=== PATIENT | male | born 1945 | race Caucasian/White ===

== ENCOUNTER → 2020-05-14 10:28 | Outpatient (POV) | payer MEDICARE, SELFPAY | PROVIDERS: Visit Provider Dermatology | DX: Z00.00 Encounter for general adult medical examination without abnormal findings (principal) ==

== ENCOUNTER → 2020-12-04 09:30 | Outpatient (CLI) | payer MEDICARE, SELFPAY ==
[2020-12-04 11:05] LABS: Coronavirus 19 IgG Antibody Positive (Negative); Coronavirus 19 IgM Antibody Negative (Negative)
== END ==
PROVIDERS: Visit Provider Urology
DX: N40.1 Benign prostatic hyperplasia with lower urinary tract symptoms (principal); R97.20 Elevated prostate specific antigen [PSA]; Z01.812 Encounter for preprocedural laboratory examination; Z20.822 Contact with and (suspected) exposure to COVID-19
CPT/HCPCS: 36415; 86328

== ENCOUNTER 2020-12-06 09:17 | Day surgery (SDC) | payer MEDICARE, SELFPAY ==
[2020-12-03 15:46] VITALS: BMI 26.4
[2020-12-06 09:34] VITALS: BP 191/87; PULSE 58; RESP 16; TEMP 36.3; O2SAT 99
[2020-12-06 10:04] VITALS: BP 158/76; PULSE 59; RESP 18; TEMP 36.5; O2SAT 99
--- NOTE | 2020-12-06 12:46 | HMH.OPNOTE ---
Date of procedure: 12/06/20 Pre-op Diagnosis:: BPH with lower urinary tract symptoms Post-op Diagnosis:: Same Procedure performed:: Cystourethroscopy Surgeon:: Boone Barrera MD Anesthesia: local Estimated blood loss (mL): 0 Clinical Note:: Patient is a 75-year-old white male with lower urinary tract symptoms. His prostate is enlarged on examination and he presents today for urologic evaluation. Operative findings:: Patient with trilobar hyperplasia and a large median lobe extending into the bladder. There was no evidence of trabeculation or cellule formation. Operative note:: Patient taken to the cystoscopy suite after informed consent was obtained. On the stretcher he was prepped and draped in the standard surgical fashion and 2% lidocaine placed into the urethra and the urethra clamped for 5 minutes. The flexible cystoscope introduced to the meatus passed to the prostatic urethra which showed trilobar hyperplasia. The bladder was entered and examined in a systematic fashion. Surprisingly there was no trabeculation or cellule formation. No mucosal abnormalities were noted. The ureteral orifices were somewhat obscured by a large median lobe. The scope was retroflexed showing a large median lobe extending into the bladder. There was clear efflux of urine from the ureteral orifices. Scope removed patient tolerated procedure well. We discussed the findings and we discussed that due to his median lobe he is not a good UroLift candidate and we discussed transurethral resection of prostate. He would like to proceed we will set this up at his earliest convenience. Condition: stable Disposition: same day Specimens:: None Complications:: None
== END 2020-12-06 10:14 | disposition home or self-care (01) ==
LOC: OUTP 09:19
PROVIDERS: PCP Internal Medicine; Visit Provider Urology
PROC: (CPT 52000; principal; 2020-12-06 10:30)
DX: N40.1 Benign prostatic hyperplasia with lower urinary tract symptoms (principal); R35.1 Nocturia; R39.16 Straining to void; Z82.49 Family history of ischemic heart disease and other diseases of the circulatory system; Z82.3 Family history of stroke; Z80.9 Family history of malignant neoplasm, unspecified; R97.20 Elevated prostate specific antigen [PSA]; N52.9 Male erectile dysfunction, unspecified; Z79.899 Other long term (current) drug therapy
CPT/HCPCS: 52000

== ENCOUNTER → 2020-12-20 09:18 | Outpatient (CLI) | payer MEDICARE, SELFPAY ==
[2020-12-20 09:35] LABS: Basophils % 0.3 % (0.1-2.0); Eosinophils # 0.1 K/mm3 (0.0-0.4); Eosinophils % 1.9 % (0.1-12.0); Hematocrit 39.5 % (42.0-52.0); Lymphocytes # 1.1 K/mm3 (0.7-4.5); Lymphocytes % 19.4 % (10-50); Mean Corpuscular HGB Conc 35.4 g/dL (31.8-35.4); Mean Corpuscular Hemoglobin 29.1 pg (27.0-31.2); Mean Platelet Volume 8.1 fl (7.4-10.4); Monocytes # 0.3 K/mm3 (0.1-1.0); Monocytes % 4.7 % (1.7-9.3); Neutrophils # 4.2 K/mm3 (1.8-7.8); Neutrophils % 73.8 % (37.0-80.0); Platelet Count 252 K/mm3 (142-424); Red Blood Count 4.81 M/mm3 (4.60-6.20); Red Cell Distribution Width 15.7 % (11.5-17.5); White Blood Count 5.7 K/mm3 (4.8-10.8)
[2020-12-20 10:14] LABS: Anion Gap 13.1 mEq/L (5-15); Blood Urea Nitrogen 17 mg/dl (9-20); Calcium 9.9 mg/dl (8.4-10.2); Carbon Dioxide 28 mmol/L (22.0-30.0); Chloride 103 mmol/L (98-107); Estimated Glomerular Filt Rate 66 ml/min (>60); GFR (African American) 79 ML/MIN (>60); Glucose 240 mg/dl (74-100); Potassium 3.1 mmoL/L (3.5-5.1); Sodium 141 mmol/L (136-145)
[2020-12-20 10:26] LABS: Coronavirus 19 IgG Antibody Positive (Negative); Coronavirus 19 IgM Antibody Negative (Negative)
== END ==
PROVIDERS: Visit Provider Urology
DX: R97.20 Elevated prostate specific antigen [PSA] (principal); Z01.812 Encounter for preprocedural laboratory examination; Z20.822 Contact with and (suspected) exposure to COVID-19
CPT/HCPCS: 36415; 80048; 85025; 86328

== ENCOUNTER 2020-12-23 10:02 | Observation (INO) | payer MEDICARE, SELFPAY ==
[2020-12-23] VITALS (21 sets, daily range): BP systolic 133–206; BP diastolic 63–95; PULSE 54–67; RESP 16–20; TEMP 36.4–43; O2SAT 92–98; BMI 26.9; BMI 17.9
--- NOTE | 2020-12-23 13:51 | P.PN_ITS ---
[facility] Anesthesia Checklist - Patient Identification Patient Identification: Arm Band - Structural Data Admitted From: Home Planned Operative Procedure/s: TURP Consent for Planned Operative Procedure(s) Verified: Yes Verified Documents: Surgical Consent, History and Physical - NPO Status Verified Time NPO: 00:00 - Additional verifications Anesthesia Reactions: No Hx Blood Transfusions: No Blood Transfusion Reaction: No - Airway Assessment C-Spine Mobility Assessed: Yes (mp2) TMJ Mobility Assessed: Yes Dentition: Good Dentition - Neurological Assessment Level of Consciousness: Awake, Alert - Anesthesia Plan Anesthesia Risk discussed: Yes Anesthesia Plan: Verified ASA Class: II Anesthesia Type: General [facility] History I have reviewed the patient's past medical history: Yes Medical History: Reports:: Cancer (PROSTATE), Hypertension, Kidney Stones Denies:: Diabetes Mellitus Type 1, Diabetes Mellitus Type 2, Internal Pacemaker, MRSA, Seizures *Have you ever received a pneumonia vaccine?: No *Have you received a flu vaccine this season?: No Other Medical History: Denies: Blood Transfusion Reaction Anesthesia experience/problems:: nac Other Surgeries: Yes: Colonoscopy. No: Pacemaker Amputation: No Fractures: No - *Social History Last grade of school completed: Some college Smoking Status: Never smoker Alcohol Intake: never Substance Use Type: denies use *Occupational Status:: employed Housing: house Household Members: spouse *Travel in the last 8 weeks: None Family Hx:: Cancer, Heart Attack, Hypertension, Stroke
--- NOTE | 2020-12-23 13:52 | HMH.ANESI ---
[facility] Anesthesia Record Part I Intake, IV Amount: 800 Estimated blood loss (mL): 0 Urine output (mL): 0 Blood Pressure: 133/95 SaO2: 92 Pulse Rate: 62 Respiratory Rate: 16 Temperature: 98.7 F Patient is:: Drowsy, Stable Stable to PACU at:: 13:45
--- NOTE | 2020-12-23 14:15 | PC.NURSE ---
Spoke to lab, approx 20 more minutes until COVID swab results
--- NOTE | 2020-12-23 14:48 | HMH.PHAVTE ---
[facility] Pharmacy VTE Monitoring - Patient Demographics Admission date: 12/23/20 Report Date: 12/23/20 Time: 14:48 Allergies/Adverse Reactions: Patient Allergies Penicillins Allergy (Verified 12/23/20 09:43) Height: 1.8 m Weight: 87.543 kg - VTE Risk Clinical Trial Participant: No - Prophylaxis VTE Prophylaxis Ordered?: Yes Types of VTE Prophylaxis: IPCS Knee High (POST OP)
--- NOTE | 2020-12-23 14:58 | HMH.ANESII ---
[facility] Anesthesia Record Part II Discharge Time: 14:15 Destination: Medical Surgical Department PACU nurse assessment reviewed?: Yes Patient Condition:: Good Anesthesia Complications:: None Swallowing reflex intact?: Yes Cyanosis?: No Blood Pressure: 138/68 Pulse Rate: 57 Temperature: 98.2 F Mental Status: Alert & Oriented Pain level:: 0 Nausea and/or vomitting:: None Intake, IV Amount: 0
--- NOTE | 2020-12-23 15:24 | HMH.PHAINT ---
clarified home medication list using list from Dr Dinh' office
--- NOTE | 2020-12-23 15:38 | P.OP_ITS ---
Date of procedure: 12/23/20 Pre-op Diagnosis:: BPH with obstruction Post-op Diagnosis:: BPH with obstruction Procedure performed:: Transurethral resection of prostate Surgeon:: Boone Barrera MD SENIOR ARCHITECT/DESIGN MANAGER:: Bhupendra Orozco Anesthesia: GETA Estimated blood loss (mL): 10 Clinical Note:: 75-year-old white male with lower urinary tract symptoms noted to have a BPH on cystoscopy. He presents for urologic management. Operative findings:: Patient with trilobar hyperplasia and moderate sized median lobe. TURP was performed without difficulty. Operative note:: Patient taken to the operating room after informed consent was obtained. Was placed on the operating table in the supine position and general anesthesia administered. Preoperative antibiotics and sequential compression devices placed. He was then placed into the dorsal lithotomy position prepped draped in a standard surgical fashion. 22 Rober passed into the urethra and up to the prostate which again showed trilobar hyperplasia. The bladder was entered and examined in a systematic fashion. No significant cellule or diverticular fo rmation noted. Minimal trabeculation was noted. The ureteral orifices were close to the median lobe. The cystoscope then removed and our 28 Sinhala resectoscope sheath passed into the bladder without difficulty and the resectoscope passed through the sheath and resection began at the bladder neck resecting it in a circumferential fashion. We then resected the prostate at the 6 o'clock position back to the verumontanum. Right-sided prostate was then resected in a clockwise fashion back to the be removed. The left side the prostate was resected as well in a counterclockwise fashion. Some anterior tissue was resected as well. The apical tissue near the very was resected as stage III of the procedure. All the prostate chips were then evacuated and hemostasis achieved. There was a good TUR defect noted at the end of the case. Scope removed and a 22 Sinhala three-way catheter passed into the bladder without difficulty and 25 cc placed into the balloon. The three-way catheter was passed to continuous bladder irrigation. The urine was clear. Patient transported to recovery in stable condition. Condition: stable Disposition: PACU Specimens:: Prostate chips Complications:: None
--- NOTE | 2020-12-23 16:11 | PC.NURSE ---
Per MD Barrera, continue CBI running w/ a goal of urine being light pink in color. Also, CBI can end at 0700 on 12/24/20. PRN MAR order placed for sterile water irrigation fluids per MD Barrera
[2020-12-24] VITALS: BP 151/74; PULSE 58; RESP 18; TEMP 36.6; O2SAT 96
[2020-12-24 04:00] VITALS: BP 153/65; PULSE 59; RESP 17; TEMP 36.6; O2SAT 98
--- NOTE | 2020-12-24 04:03 | PC.NURSE ---
no change from previous assesssment, pt remains alert and oriented and able to make needs known, CBI continues with light pink output in may, pt c/o groin pain 3/10 on pain scale that pt describes as dull ache, no distress noted, call light within reach will continue to monitor
[2020-12-24 05:31] VITALS: BMI 17.9
[2020-12-24 07:21] LABS: Basophils % 0.1 % (0.1-2.0); Eosinophils % 0.1 % (0.1-12.0); Hematocrit 37.7 % (42.0-52.0); Hemoglobin 13.1 g/dL (14.1-18.0); Lymphocytes # 1.2 K/mm3 (0.7-4.5); Lymphocytes % 10.8 % (10-50); Mean Corpuscular HGB Conc 34.8 g/dL (31.8-35.4); Mean Corpuscular Hemoglobin 29.2 pg (27.0-31.2); Mean Corpuscular Volume 84.1 fl (80-94); Mean Platelet Volume 7.6 fl (7.4-10.4); Monocytes # 0.5 K/mm3 (0.1-1.0); Monocytes % 4.8 % (1.7-9.3); Neutrophils # 9.2 K/mm3 (1.8-7.8); Neutrophils % 84.3 % (37.0-80.0); Platelet Count 249 K/mm3 (142-424); Red Blood Count 4.48 M/mm3 (4.60-6.20); Red Cell Distribution Width 15.6 % (11.5-17.5); White Blood Count 10.9 K/mm3 (4.8-10.8)
[2020-12-24 07:29] LABS: Anion Gap 11.6 mEq/L (5-15); Blood Urea Nitrogen 18 mg/dl (9-20); Calcium 8.7 mg/dl (8.4-10.2); Carbon Dioxide 25 mmol/L (22.0-30.0); Chloride 107 mmol/L (98-107); Creatinine Clearance Estimated 59 mL/min (50-200); Estimated Glomerular Filt Rate 73 ml/min (>60); GFR (African American) 89 ML/MIN (>60); Glucose 205 mg/dl (74-100); Potassium 3.6 mmoL/L (3.5-5.1); Sodium 140 mmol/L (136-145)
[2020-12-24 08:00] VITALS: BP 171/74; PULSE 62; RESP 18; TEMP 36.8; O2SAT 97
--- NOTE | 2020-12-24 09:38 | P.PN_ITS ---
Internal Medicine - PN: Subj *Date: 12/24/20 *Time: 09:38 Interval history: Patient denies any problems overnight. Galvez catheter has been running well with moderate CBI. CBI was turned off 2 hours ago on the urine is blood-tinged upon my arrival. Patient denies any bladder spasms. He has been afebrile and vital signs are stable. Exam Vital signs and Labs for Last 24 Hours: Temp Pulse Resp BP Pulse Ox 98.3 F 62 18 171/74 H 97 12/24/20 08:00 12/24/20 08:00 12/24/20 08:00 12/24/20 08:00 12/24/20 08:00 Laboratory Results - last 24 hr 12/24/20 06:48: WBC 10.9 H, RBC 4.48 L, Hgb 13.1 L, Hct 37.7 L, MCV 84.1, MCH 29.2, MCHC 34.8, RDW 15.6, Plt Count 249, MPV 7.6, Neut % (Auto) 84.3 H, Lymph % (Auto) 10.8, [place] % (Auto) 4.8, Eos % (Auto) 0.1, Baso % (Auto) 0.1, Neut # (Auto) 9.2 H, Lymph # (Auto) 1.2, [place] # (Auto) 0.5, Eos # (Auto) 0.0, Baso # (Auto) 0.0 12/24/20 06:48: Sodium 140, Potassium 3.6, Chloride 107, Carbon Dioxide 25, Anion Gap 11.6, BUN 18, Creatinine 1.00, Estimated Creat Clear 59, Estimated GFR 73, Est GFR ( Amer) 89, Glucose 205 H, Calcium 8.7 I & O for Last 24 hours: Intake & Output 12/21/20 12/22/20 12/23/20 12/24/20 23:59 23:59 23:59 23:59 Intake Total 2890 / 2890 1332 / 1332 Output Total 22968 / 90482 2600 / 2600 Balance -70856 / -37246 -1268 / -1268 Weight 63.503 kg 63.503 kg Microbiology Reports for the Last 24 Hours: Microbiology 12/23/20 10:35 Nasopharyngeal Coronavirus COVID-19 PCR - Final - Constitutional no acute distress - *Routine HEENT Exam Head: Present: normocephalic Eye: Present: EOMI, PERRL ENT: Present: mucous membranes moist - *Routine Neck Exam Present: supple. Absent: lymphadenopathy - *Routine Respiratory Exam Absent: accessory muscle use - *Routine Cardiovascular Exam Absent: JVD - *Routine Abdominal Exam Present: soft. Absent: tenderness - *Routine Extremities Exam Absent: cyanosis, clubbing, edema - *Routine Skin Exam Present: warm. Absent: rash - *Routine Neurological Exam Present: alert, oriented X3 Assessment and Plan (1) BPH with obstruction/lower urinary tract symptoms Status: Acute Category: Medical Code(s): N40.1 - Benign prostatic hyperplasia with lower urinary tract symptoms; N13.8 - Other obstructive and reflux uropathy Postop day 1 status post TURP yesterday. CBI ran throughout the night without difficulty. Urine was slightly blood-tinged this morning off of CBI. Will allow patient to go home with his Galvez catheter. We discussed restriction of any strenuous activities and pushing fluids for the next couple of days. I will see him back in 2 days for Galvez catheter removal. We will discussed the pathology of the prostate chips at that time. He will be sent home with a leg bag in the larger bag for nighttime use. Prescription for antibiotics will be given as well.
--- NOTE | 2020-12-24 13:25 | HMH.HP ---
*Admission Date: 12/23/20 *Chief complaint: BPH with obstruction *History of present illness: Patient is a 75-year-old white male with lower urinary tract symptoms. Recent cystoscopy revealed trilobar hyperplasia with enlarged median lobe. He presents for urologic management. [facility] History Medical History: Reports:: Cancer (PROSTATE), Hypertension, Kidney Stones Denies:: Diabetes Mellitus Type 1, Diabetes Mellitus Type 2, Internal Pacemaker, MRSA, Seizures *Have you ever received a pneumonia vaccine?: No *Have you received a flu vaccine this season?: No Other Medical History: Denies: Blood Transfusion Reaction Anesthesia experience/problems:: nac Other Surgeries: Yes: No Previous Surgery, Colonoscopy. No: Pacemaker Amputation: No Fractures: No - *Social History Last grade of school completed: Some college Smoking Status: Never smoker Alcohol Intake: never Substance Use Type: denies use *Occupational Status:: employed Housing: house Household Members: spouse *Travel in the last 8 weeks: None Family Hx:: Cancer, Coronary Artery Disease, Hypertension, Stroke Review of Systems - Review of Systems Review of systems:: pertinent systems reviewed and negative unless documented below Meds Home Medications Medication Instructions Recorded Confirmed Type terazosin 10 mg capsule 10 mg PO BID 11/12/20 12/23/20 History Colchicine 0.6 mg PO DIRECTED 12/23/20 12/23/20 History Potassium Chloride [Klor-Con M10] 20 meq PO BID 12/23/20 12/23/20 History allopurinoL [Allopurinol 300mg 300 mg PO DAILY 12/23/20 12/23/20 History tablet] carvediloL [Carvedilol 6.25mg Tab] 6.25 mg PO BID 12/23/20 12/23/20 History metOLazone [metOLazone 2.5mg 2.5 mg PO DAILY 12/23/20 12/23/20 History Tablet] levoFLOXacin [Levaquin 500mg 500 mg PO DAILY #3 tab 12/24/20 Rx tab] Allergies Allergy/AdvReac Type Severity Reaction Status Date / Time Penicillins Allergy Verified 12/23/20 09:43 Exam Vital signs and Labs for Last 24 Hours: Temp Pulse Resp BP Pulse Ox 98.3 F 62 18 171/74 H 97 12/24/20 08:00 12/24/20 08:00 12/24/20 08:00 12/24/20 08:00 12/24/20 08:00 Laboratory Results - last 24 hr 12/24/20 06:48: WBC 10.9 H, RBC 4.48 L, Hgb 13.1 L, Hct 37.7 L, MCV 84.1, MCH 29.2, MCHC 34.8, RDW 15.6, Plt Count 249, MPV 7.6, Neut % (Auto) 84.3 H, Lymph % (Auto) 10.8, [place] % (Auto) 4.8, Eos % (Auto) 0.1, Baso % (Auto) 0.1, Neut # (Auto) 9.2 H, Lymph # (Auto) 1.2, [place] # (Auto) 0.5, Eos # (Auto) 0.0, Baso # (Auto) 0.0 12/24/20 06:48: Sodium 140, Potassium 3.6, Chloride 107, Carbon Dioxide 25, Anion Gap 11.6, BUN 18, Creatinine 1.00, Estimated Creat Clear 59, Estimated GFR 73, Est GFR ( Amer) 89, Glucose 205 H, Calcium 8.7 I & O for Last 24 hours: Intake & Output 12/21/20 12/22/20 12/23/20 12/24/20 23:59 23:59 23:59 23:59 Intake Total 2890 / 2890 1332 / 1332 Output Total 81065 / 56483 2600 / 2600 Balance -18695 / -24867 -1268 / -1268 Weight 63.503 kg 63.503 kg Microbiology Reports for the Last 24 Hours: Microbiology 12/23/20 10:35 Nasopharyngeal Coronavirus COVID-19 PCR - Final - *Routine HEENT Exam Head: Present: normocephalic Eye: Present: EOMI, PERRL ENT: Present: mucous membranes moist - *Routine Neck Exam Present: supple. Absent: lymphadenopathy - *Routine Respiratory Exam Present: CTA bilaterally - *Routine Cardiovascular Exam Present: RRR - *Routine Abdominal Exam Present: soft, normoactive bowel sounds. Absent: tenderness - *Routine Extremities Exam Absent: cyanosis, clubbing, edema - *Routine Skin Exam Present: warm. Absent: rash - *Routine Neurological Exam Present: alert, oriented X3 Assessment and Plan (1) BPH with obstruction/lower urinary tract symptoms Status: Acute Category: Medical Code(s): N40.1 - Benign prostatic hyperplasia with lower urinary tract symptoms; N13.8 - Other obstructive and reflux uropathy Patient with lower urinary tra
--- NOTE | 2020-12-24 13:27 | HMH.DCSUM ---
General - General Admission date:: 12/23/20 Discharge date: 12/24/20 HPI HPI: Patient is a 75-year-old white male with lower urinary tract symptoms. Recent cystoscopy revealed trilobar hyperplasia with enlarged median lobe. He presents for urologic management. Hospital Course Hospital Course: Patient admitted to the hospital on the morning of 12/23/2020. He was taken to the operating room and transurethral resection of prostate was performed. There were no complications and he was discharged to the floor postoperatively with a Galvez catheter to continuous bladder irrigation. On postop day 1 he was doing well and had no problems overnight. Galvez catheter was draining some blood-tinged urine off of CBI. He was afebrile and his vital signs are stable. He was tolerating a regular diet and ambulating in the halls. Objective Vital signs: Temp Pulse Resp BP Pulse Ox 98.3 F 62 18 171/74 H 97 12/24/20 08:00 12/24/20 08:00 12/24/20 08:00 12/24/20 08:00 12/24/20 08:00 no acute distress - *Routine HEENT Exam Head: Present: normocephalic Eye: Present: EOMI, PERRL ENT: Present: mucous membranes moist - *Routine Neck Exam Absent: JVD - *Routine Respiratory Exam Absent: accessory muscle use - *Routine Cardiovascular Exam Absent: JVD - *Routine Abdominal Exam Present: soft. Absent: tenderness - *Routine Extremities Exam Absent: cyanosis, clubbing, edema - *Routine Skin Exam Present: warm. Absent: rash Results Labs on day of discharge: Labs from last 24 hours 12/24/20 12/24/20 06:48 06:48 WBC 10.9 H RBC 4.48 L Hgb 13.1 L Hct 37.7 L MCV 84.1 MCH 29.2 MCHC 34.8 RDW 15.6 Plt Count 249 MPV 7.6 Neut % (Auto) 84.3 H Lymph % (Auto) 10.8 [place] % (Auto) 4.8 Eos % (Auto) 0.1 Baso % (Auto) 0.1 Neut # (Auto) 9.2 H Lymph # (Auto) 1.2 [place] # (Auto) 0.5 Eos # (Auto) 0.0 Baso # (Auto) 0.0 Sodium 140 Potassium 3.6 Chloride 107 Carbon Dioxide 25 Anion Gap 11.6 BUN 18 Creatinine 1.00 Estimated Creat Clear 59 Estimated GFR 73 Est GFR ( Amer) 89 Glucose 205 H Calcium 8.7 DS: Diagnosis - Discharge Diagnosis (1) BPH with obstruction/lower urinary tract symptoms Status: Acute Problem details: Patient is status post TURP yesterday. His urine was slightly blood-tinged off of CBI this morning. He is tolerating regular diet and ambulating. I will allow him to go home with his catheter for tamponade purposes. He is to push fluids and restrict any strenuous activity. I will see him back in 2 days for voiding trial. Discharge Plan - Patient Discharge Instructions ACTIVITY: Limited activity, No heavy lifting DIET: continue same diet Patient Instructions: How to Care for Your Galvez Catheter -- Male, DI for Transurethral Resection of the Prostate, Catheter-associated Urinary Tract Infection - Follow up Plan Follow up with: Otf Dinh [Primary Care Provider] - 12/31/20 10:30 am Boone Barrera MD [Staff Physician] - 12/26/20 2:45 pm Disposition: Home, Self-Long Term Medications: Home Medications Medication Instructions Recorded Confirmed Type terazosin 10 mg capsule 10 mg PO BID 11/12/20 12/23/20 History Colchicine 0.6 mg PO DIRECTED 12/23/20 12/23/20 History Potassium Chloride [Klor-Con M10] 20 meq PO BID 12/23/20 12/23/20 History allopurinoL [Allopurinol 300mg 300 mg PO DAILY 12/23/20 12/23/20 History tablet] carvediloL [Carvedilol 6.25mg Tab] 6.25 mg PO BID 12/23/20 12/23/20 History metOLazone [metOLazone 2.5mg 2.5 mg PO DAILY 12/23/20 12/23/20 History Tablet] levoFLOXacin [Levaquin 500mg 500 mg PO DAILY #3 tab 12/24/20 Rx tab] Prescriptions/Medication Reconciliation: New levoFLOXacin [Levaquin 500mg tab] 500 mg PO DAILY #3 tab Continued terazosin 10 mg capsule 10 mg PO BID carvediloL [Carvedilol 6.25mg Tab] 6.25 mg PO BID Potassium Chlor
== END 2020-12-24 12:25 | disposition home or self-care (01) ==
LOC: 2ND 10:04
PROVIDERS: Admitting Provider Urology; PCP Internal Medicine; Visit Provider Urology
PROC: 0VT08ZZ Resection of Prostate, Via Natural or Artificial Opening Endoscopic (ICD-10-PCS; CPT 52601; principal; 2020-12-23 10:45)
DX: N40.1 Benign prostatic hyperplasia with lower urinary tract symptoms (principal); I10 Essential (primary) hypertension; N13.8 Other obstructive and reflux uropathy
CPT/HCPCS: 52601; 80048; 85025; 88305; 96374; G0378; J1956; J2405; U0003

== ENCOUNTER → 2021-11-03 14:33 | Outpatient (CLI) | payer MEDICARE, SELFPAY ==
[2021-11-03 15:49] LABS: Basophils # 0.1 K/mm3 (0-0.2); Basophils % 0.9 % (0.1-2.0); Eosinophils # 0.1 K/mm3 (0.0-0.4); Eosinophils % 1.7 % (0.1-12.0); Hematocrit 42.6 % (42.0-52.0); Hemoglobin 14.4 g/dL (14.1-18.0); Lymphocytes # 1.2 K/mm3 (0.7-4.5); Lymphocytes % 18.1 % (10-50); Mean Corpuscular HGB Conc 33.8 g/dL (31.8-35.4); Mean Corpuscular Hemoglobin 29.5 pg (27.0-31.2); Mean Corpuscular Volume 87.4 fl (80-94); Mean Platelet Volume 8.8 fl (7.4-10.4); Monocytes # 0.4 K/mm3 (0.1-1.0); Neutrophils # 4.7 K/mm3 (1.8-7.8); Neutrophils % 73.3 % (37.0-80.0); Platelet Count 327 K/mm3 (142-424); Red Blood Count 4.88 M/mm3 (4.60-6.20); Red Cell Distribution Width 15.1 % (11.5-17.5); White Blood Count 6.4 K/mm3 (4.8-10.8)
[2021-11-03 17:27] LABS: Alanine Aminotransferase 27 U/L (12-78); Albumin Level 4.3 g/dl (3.5-5.0); Albumin/Globulin Ratio 1.8 (1.1-1.8); Alkaline Phosphatase 97 U/L (38-126); Anion Gap 11.8 mEq/L (5-15); Aspartate Amino Transferase 25 U/L (17-59); Bilirubin,Total 1.3 mg/dl (0.2-1.3); Blood Urea Nitrogen 20 mg/dl (9-20); Calcium 9.2 mg/dl (8.4-10.2); Carbon Dioxide 30 mmol/L (22.0-30.0); Chloride 97 mmol/L (98-107); Chol/HDL Ratio 5.9 (1-3.5); Cholesterol 225 mg/dl (140-200); Estimated Glomerular Filt Rate 65 ml/min (>60); GFR (African American) 79 ML/MIN (>60); Globulin 2.4 g/dL (1.3-3.2); Glucose 171 mg/dl (74-100); HDL Cholesterol 38 mg/dl (40-60); Sodium 136 mmol/L (136-145); Total Protein,Serum 6.7 g/dl (6.3-8.2); Triglycerides 288 mg/dl (30-150); Uric Acid 6.7 mg/dl (3.5-8.5); VLDL Cholesterol 58 mg/dL (0-40)
[2021-11-03 17:38] LABS: Direct LDL Cholesterol 124.29 mg/dL (100-129)
[2021-11-03 18:02] LABS: Prostate Specific Ag Screen 3.7 ng/ml (0.0-4.0)
[2021-11-03 21:02] LABS: Hemoglobin A1C 7.5 % (4.0-6.0)
== END ==
PROVIDERS: Visit Provider Internal Medicine
DX: I10 Essential (primary) hypertension (principal); E78.5 Hyperlipidemia, unspecified; R73.01 Impaired fasting glucose; Z12.5 Encounter for screening for malignant neoplasm of prostate
CPT/HCPCS: 80053; 80061; 83036; 84550; 85025; G0103

== ENCOUNTER → 2022-05-05 12:57 | Outpatient (CLI) | payer MEDICARE, SELFPAY ==
[2022-05-05 15:02] LABS: Hemoglobin A1C 7.9 % (4.0-6.0)
[2022-05-05 15:07] LABS: Alanine Aminotransferase 45 U/L (12-78); Albumin Level 3.9 g/dl (3.5-5.0); Albumin/Globulin Ratio 1.5 (1.1-1.8); Alkaline Phosphatase 118 U/L (38-126); Aspartate Amino Transferase 36 U/L (17-59); Bilirubin,Total 1.7 mg/dl (0.2-1.3); Blood Urea Nitrogen 27 mg/dl (9-20); Calcium 9.4 mg/dl (8.4-10.2); Carbon Dioxide 30 mmol/L (22.0-30.0); Chloride 94 mmol/L (98-107); Chol/HDL Ratio 6.5 (1-3.5); Cholesterol 220 mg/dl (140-200); Estimated Glomerular Filt Rate 54 ml/min (>60); GFR (African American) 65 ML/MIN (>60); Globulin 2.6 g/dL (1.3-3.2); Glucose 222 mg/dl (74-100); HDL Cholesterol 34 mg/dl (40-60); Sodium 137 mmol/L (136-145); Total Protein,Serum 6.5 g/dl (6.3-8.2); Triglycerides 397 mg/dl (30-150); Uric Acid 8.9 mg/dl (3.5-8.5); VLDL Cholesterol 79 mg/dL (0-40)
[2022-05-05 15:18] LABS: Direct LDL Cholesterol 109.19 mg/dL (100-129)
== END ==
PROVIDERS: PCP Internal Medicine; Visit Provider Internal Medicine
DX: I10 Essential (primary) hypertension (principal); R73.01 Impaired fasting glucose; E78.5 Hyperlipidemia, unspecified; M10.9 Gout, unspecified; N40.1 Benign prostatic hyperplasia with lower urinary tract symptoms; Z90.79 Acquired absence of other genital organ(s)
CPT/HCPCS: 80053; 80061; 83036; 84550

== ENCOUNTER → 2022-11-04 12:41 | Outpatient (CLI) | payer MEDICARE, SELFPAY ==
[2022-11-04 14:57] LABS: Alanine Aminotransferase 35 U/L (12-78); Albumin Level 4.3 g/dl (3.5-5.0); Albumin/Globulin Ratio 1.7 (1.1-1.8); Alkaline Phosphatase 100 U/L (38-126); Anion Gap 13.4 mEq/L (5-15); Aspartate Amino Transferase 34 U/L (17-59); Bilirubin,Total 1.8 mg/dl (0.2-1.3); Blood Urea Nitrogen 19 mg/dl (9-20); Calcium 9.3 mg/dl (8.4-10.2); Carbon Dioxide 32 mmol/L (22.0-30.0); Chloride 96 mmol/L (98-107); Cholesterol 231 mg/dl (140-200); Estimated Glomerular Filt Rate 54 ml/min (>60); GFR (African American) 65 ML/MIN (>60); Globulin 2.6 g/dL (1.3-3.2); Glucose 180 mg/dl (74-100); HDL Cholesterol 33 mg/dl (40-60); Potassium 3.4 mmoL/L (3.5-5.1); Sodium 138 mmol/L (136-145); Total Protein,Serum 6.9 g/dl (6.3-8.2); Triglycerides 341 mg/dl (30-150); Uric Acid 6.2 mg/dl (3.5-8.5); VLDL Cholesterol 68 mg/dL (0-40)
[2022-11-04 15:10] LABS: Direct LDL Cholesterol 133.31 mg/dL (100-129)
[2022-11-04 15:20] LABS: Basophils % 0.6 % (0.1-2.0); Eosinophils # 0.1 K/mm3 (0.0-0.4); Eosinophils % 1.9 % (0.1-12.0); Hemoglobin 14.6 g/dL (14.1-18.0); Lymphocytes # 1.6 K/mm3 (0.7-4.5); Lymphocytes % 21.1 % (10-50); Mean Corpuscular HGB Conc 32.5 g/dL (31.8-35.4); Mean Corpuscular Hemoglobin 28.6 pg (27.0-31.2); Mean Corpuscular Volume 88.2 fl (80-94); Mean Platelet Volume 8.8 fl (7.4-10.4); Monocytes # 0.4 K/mm3 (0.1-1.0); Monocytes % 5.7 % (1.7-9.3); Neutrophils # 5.4 K/mm3 (1.8-7.8); Neutrophils % 70.8 % (37.0-80.0); Platelet Count 298 K/mm3 (142-424); White Blood Count 7.6 K/mm3 (4.8-10.8)
[2022-11-04 15:48] LABS: Hemoglobin A1C 7.5 % (4.0-6.0)
== END ==
PROVIDERS: PCP Internal Medicine; Visit Provider Internal Medicine
DX: D64.9 Anemia, unspecified (principal); E11.9 Type 2 diabetes mellitus without complications; E78.5 Hyperlipidemia, unspecified; M10.9 Gout, unspecified
CPT/HCPCS: 80053; 80061; 83036; 84550; 85025

== ENCOUNTER → 2023-05-24 12:04 | Outpatient (CLI) | payer MEDICARE, SELFPAY ==
[2023-05-24 14:22] LABS: Alanine Aminotransferase 29 U/L (12-78); Albumin Level 4.2 g/dl (3.5-5.0); Albumin/Globulin Ratio 1.5 (1.1-1.8); Alkaline Phosphatase 98 U/L (38-126); Anion Gap 14.5 mEq/L (5-15); Aspartate Amino Transferase 27 U/L (17-59); Bilirubin,Total 1.9 mg/dl (0.2-1.3); Blood Urea Nitrogen 20 mg/dl (9-20); Carbon Dioxide 31 mmol/L (22.0-30.0); Chloride 99 mmol/L (98-107); Chol/HDL Ratio 6.9 (1-3.5); Cholesterol 240 mg/dl (140-200); Estimated Glomerular Filt Rate 59 ml/min (>60); GFR (African American) 71 ML/MIN (>60); Globulin 2.8 g/dL (1.3-3.2); Glucose 197 mg/dl (74-100); HDL Cholesterol 35 mg/dl (40-60); Potassium 3.5 mmoL/L (3.5-5.1); Sodium 141 mmol/L (136-145); Triglycerides 326 mg/dl (30-150); Uric Acid 6.2 mg/dl (3.5-8.5); VLDL Cholesterol 65 mg/dL (0-40)
[2023-05-24 14:35] LABS: Direct LDL Cholesterol 117.69 mg/dL (100-129)
[2023-05-24 15:21] LABS: Creatinine,Urine Random 108 mg/dL (Not Estab.)
[2023-05-24 15:24] LABS: Microalbumin/Creatinine Ratio 28.6
[2023-05-24 15:45] LABS: Hemoglobin A1C 7.4 % (4.0-6.0)
== END ==
PROVIDERS: PCP Internal Medicine; Visit Provider Internal Medicine
DX: E11.9 Type 2 diabetes mellitus without complications (principal); E78.5 Hyperlipidemia, unspecified; N40.1 Benign prostatic hyperplasia with lower urinary tract symptoms; M10.9 Gout, unspecified; I10 Essential (primary) hypertension; Z90.79 Acquired absence of other genital organ(s); L82.1 Other seborrheic keratosis
CPT/HCPCS: 80053; 80061; 82043; 82570; 83036; 84550